=== PATIENT | male | born 1955 | race Caucasian/White ===

== ENCOUNTER → 2021-08-31 12:50 | Outpatient (CLI) | payer MEDICARE, OTHER, SELFPAY ==
[2021-08-31 14:15] LABS: Add Manual Diff / Slide Review NO; Basophils Absolute Auto 100 /uL (0-100); Basophils Percent Auto 0.6 % (0-2); Eosinophils Absolute Auto 200 /uL (0-450); Hematocrit 43.2 % (41-53); Hemoglobin 14.2 g/dL (13.5-17.5); Lymphocytes Absolute Auto 900 /uL (1100-4500); Lymphocytes Percent Auto 9.8 % (25-40); Mean Corpuscular HGB Conc 32.9 % (30-36); Mean Corpuscular Hemoglobin 30.5 PG (26-34); Mean Corpuscular Volume 92.9 fL (80-100); Monocytes Absolute Auto 800 /uL (0-900); Monocytes Percent Auto 8.7 % (3-14); Neutrophils Absolute Auto 7600 /uL (1500-7000); Neutrophils Percent Auto 78.9 % (50-75); Platelet Count 301 X10^3/uL (150-400); Red Blood Cell Count 4.65 X10^6/uL (4.5-5.9); Red Cell Distribution Width 13.9 % (11.6-14.8); White Blood Cell Count 9.6 X10^3/uL (4.5-11.0)
[2021-08-31 14:35] LABS: Hemoglobin A1C% w Est Avg Glu 6.7 % (4.0-6.0)
[2021-08-31 16:21] LABS: BUN Creatinine Ratio 19.4 (6-22); Blood Urea Nitrogen 14 mg/dL (9-20); Calcium 9.8 mg/dL (8.4-10.2); Carbon Dioxide 28 mmol/L (22-32); Chloride 103 mmol/L (98-107); Estimated Glomerular Filt Rate > 60.0 mL/min (>60); Glucose 139 mg/dL (80-110); HEMOLYSIS < 15 (0-50); Potassium 4.9 mmol/L (3.4-5.1); Sodium 140 mmol/L (137-145)
== END ==
PROVIDERS: PCP Nurse Practitioner Acute Care; Referring Provider Orthopaedic Surgery Orthopaedic Surgery of the Spine; Visit Provider Orthopaedic Surgery Orthopaedic Surgery of the Spine
DX: Z01.818 Encounter for other preprocedural examination (principal); R73.9 Hyperglycemia, unspecified; Z01.812 Encounter for preprocedural laboratory examination
CPT/HCPCS: 36415; 80048; 83036; 85025; 93005

== ENCOUNTER → 2021-10-09 11:24 | Outpatient (CLI) | payer MEDICARE, OTHER, SELFPAY ==
[2021-10-09 14:00] LABS: COVID19 -Nasal RAPID Negative (Negative)
== END ==
PROVIDERS: PCP Nurse Practitioner Acute Care; Visit Provider Physician Assistant
DX: Z20.822 Contact with and (suspected) exposure to COVID-19 (principal)
CPT/HCPCS: 87635; C9803

== ENCOUNTER 2021-10-12 09:16 | Day surgery (SDC) | payer MEDICARE, OTHER, SELFPAY ==
[2021-09-29 13:57] VITALS: BMI 43.5
[2021-10-12] VITALS (17 sets, daily range): BP systolic 126–182; BP diastolic 71–99; PULSE 66–109; RESP 16–18; TEMP 36.3–37.1; O2SAT 90–97; BMI 43.0
--- NOTE | 2021-10-12 10:39 | PM.PREOP ---
Pre-operative Note COVID-19 COVID-19 status: Negative Result date/Date tested (Pos, Neg/Pending): 10/10/21 Interval Note History & Physical reviewed/Exam performed by Physician: Yes Changes to H&P: No
[2021-10-12] MEDS: LACTATED RINGERS 1,000 ML 42 ML IV ×2 (10:40→12:53)
[2021-10-12] MEDS: CEFAZOLIN 3 GM IN 0.9 % NACL 100 ML IV (11:08)
--- NOTE | 2021-10-12 11:53 | SUR.OPER ---
Prone on spine table, head in foam head support, padded chest and pelvic supports, gel pad at knees, lower legs supported by pillows; nipples, genitalia and toes free of pressure, arms secured on foam padded arm boards at <90 degrees abduction. Tape over blanket at thigh secured to table.
[2021-10-12] MEDS: BUPIVACAINE 0.25% (PF) 30 ML, EPINEPHrine 0.3 MG INJ (11:58)
[2021-10-12] MEDS: BUPIVACAINE LIPOSOME 266 MG/20 ML VIAL INJ (11:59)
--- NOTE | 2021-10-12 13:28 | DI.RAD.S_ITS ---
PROCEDURE: XR LUMBAR SPINE 2-3V INDICATIONS: L4-L5 TLIF TECHNIQUE: 2 intraoperative views of the lumbar spine were acquired. COMPARISON: [facility] Outside Film, CR, XR LUMBAR SPINE 2 OR 3 VIEWS, 05/27/2021, 11:19. FINDINGS: Pedicle screw fixation at L4-L5 with intervertebral body spacer. IMPRESSION: Intraoperative guidance provided. Dictated by: Morris Silverman M.D. on 10/12/2021 at 14:21 Approved by: Morris Silverman M.D. on 10/12/2021 at 14:21
--- NOTE | 2021-10-12 13:38 | PM.OP.1 ---
Operative Date/Time/Diagnoses Date of procedure: 10/12/21 Time of procedure: 11:30 Pre-op diagnosis: 1. L4-5 spondylolisthesis 2. L4-5 spinal stenosis with neurogenic claudication 3. Morbid obesity Post-op diagnosis: same Procedure & Clinicians Procedure: 1. L4-5 Postero-lateral and posterior interbody fusion 2. L4-5 interbody cage placement. 3. L4-5 decompressive laminectomy with bilateral facetecomies 4. L4-5 Posterior non-segmental instrumentation 5. [place] of bone marrow from iliac crest 6. Utilization of microsurgical technique and operating microscope Same procedure as scheduled: Yes Indications: Patient has been having chronic back pain and worsening lumbar radiculopathy. Patient failed multiple conservative management with worsening pain weakness and numbness in her lower extremity. Patient has been having difficulty performing activity of daily living. After discussing risks benefits of treatment options, patient elected proceed with surgery. Surgeon: Mariano Larios Indian Blanket Weaver: Micah Seymour Click Yes if Unassisted: No Anesthesia Type: General Operative Notes Closure Type: primary Specimen(s): none sent Prosthetic devices, grafts, tissues, transplants, or devices: Globus revolve screws, Rise cage Estimated Blood Loss (mL): 50 Blood products transfused: none Procedure in detail: Patient was seen in the preoperative area. Risks and benefits of the surgery was discussed with the patient. Informed consent was obtained from the patient and placed in the chart. Surgical site was marked. Patient was taken to the operative room. General anesthesia was administered. Prophylactic antibiotic was given to the patient less than 30 min before the incision was made. Patient was placed into a prone position on the Nicola table. Patient's back was then prepped and draped in the sterile fashion. Time-out was performed at this time. Using AP and lateral C-arm imaging the interval between L4-5 was identified and marked on patient's back. A 2 inch incision 2 in from midline was made on the left side first. The fascia was incised in line with skin incision. Globus MARS retractors was placed inside the incision and docked onto the L4 lamina. Using microsurgical technique and operating microscope, a L4 laminectomy and L4-5 facetectomy was performed using a Kerrison rongeur. The disc space at L4-5 was identified. And a total diskectomy was performed at L4-5 level. The endplates were decorticated using a rasp and shaver. The total diskectomy and decortication was performed at L4-5 level in order to to accomplish a L4-5 fusion. The local bone from the laminectomy and facetectomy was saved for local bone grafting. After the total diskectomy and decortication was completed, Trifecta bone graft material was combined with local bone that was harvested earlier. At this time, a separate skin is incision was made over the iliac crest. A Jamshidi needle was inserted into the iliac crest through a separate skin incision. 5 cc of bone marrow aspiration was obtained through the separate skin incision using a Jamshidi needle from the iliac crest. The bone marrow aspiration was combined with local bone and the Trifecta bone grafting material. The bone grafting material was placed into the L4-5 interbody space along with a expandable cage. The cage was expanded to its maximum height using the torque limiting screwdriver. At this time a mirror image incision was made on the right side. The fascia was incised in line with the skin incision. Globus MARS retractor was inserted and docked onto the L4-5 posterolateral gutter. Using the power drill, posterior-lateral decortication was performed at L4-5 level until bleeding cortical bone was identified. The remaining bone grafting material was placed into the L4-5 posterior lateral gutter he order to accomplish posterolateral fusion at the L4-5 level. Using the double C-arm technique, pedicle screws were placed into the L4-5 pedicles bilaterally. This was done by placing the Jamshidi needle into the pedicles, then placing the guidewires over the Jamshidi needle, and finally placing the cannulated screws over the guidewires bilaterally. After the pedicle screws were placed, 2 titanium rods was locked into the heads of the pedicle screws using locking caps and torque limiting screwdriver. After all the hardware was placed, and confirmed with AP and lateral C-arm imaging, the wound was then irrigated with sterile normal saline and packed with Ray-Chantale gauze for 3 min to accomplish hemostasis. After the gauze was removed the deep fascia was closed with #1 Vicryl suture. The subcutaneous layer was closed with 2-0 Vicryl. The skin was closed with skin charisse. Patient tolerated the procedure well. There were no complications. Complications: none Post-operative Condition: stable Disposition: PACU Plan for aftercare: Admit to inpatient hospital
--- NOTE | 2021-10-12 14:28 | SUR.PHASEI ---
injury to frenulum underneath tongue noted by anesthesia. no active bleeding.
--- NOTE | 2021-10-12 14:35 | SUR.PHASEI ---
report to SISI Perry
[2021-10-12] MEDS: SODIUM CHLORIDE 0.9% 1,000 ML 100 ML IV (16:39)
[2021-10-12] MEDS: OXYCODONE IR 10 MG TABLET PO ×2 (18:10→23:42)
[2021-10-12] MEDS: CEFAZOLIN 1 GM VIAL 2 GM IV (18:11)
--- NOTE | 2021-10-12 19:46 | PC.NURSE ---
PPP to bilateral dorsal feet; c/m/s to BL feet positive, sensation improved from pre-surgery; ls clear; IS 2500; mild to moderate pain, PO oxycodone
[2021-10-12] MEDS: IPRATROPIUM 0.5 MG/2.5 ML NEB INH (19:59)
[2021-10-12] MEDS: TERAZOSIN 1 MG CAPSULE 2 MG PO (21:21)
[2021-10-12] MEDS: TAMSULOSIN 0.4 MG CAPSULE 0.8 MG PO (21:21)
[2021-10-12] MEDS: PANTOPRAZOLE DR 20 MG TABLET PO (21:21)
[2021-10-12] MEDS: DOCUSATE 100 MG CAPSULE PO (21:21)
[2021-10-12] MEDS: LORATADINE 10 MG TABLET PO (21:21)
[2021-10-12] MEDS: atenoloL 50 MG TABLET PO (22:40)
[2021-10-12] MEDS: SENNOSIDES 8.6 MG TABLET 17.2 MG PO (22:40)
[2021-10-12] MEDS: ACETAMINOPHEN 325 MG TABLET 650 MG PO (23:41)
[2021-10-13] MEDS: CEFAZOLIN 1 GM VIAL 2 GM IV (02:37)
[2021-10-13 02:47] VITALS: BP 123/79; PULSE 89; RESP 17; TEMP 36.8; O2SAT 90
[2021-10-13] MEDS: SODIUM CHLORIDE 0.9% 1,000 ML 100 ML IV (03:56)
[2021-10-13] MEDS: OXYCODONE IR 10 MG TABLET PO ×3 (03:56→14:35)
[2021-10-13 07:00] VITALS: PULSE 79; RESP 16; O2SAT 91
[2021-10-13] MEDS: IPRATROPIUM 0.5 MG/2.5 ML NEB INH ×2 (07:00→11:19)
--- NOTE | 2021-10-13 07:44 | PM.DS.1 ---
History of Present Illness History of Present Illness Date Patient Seen: 10/13/21 Time Patient Seen: 07:45 Chief complaint: Low back pain s/p TLIF Narrative: The patient is complaining of mild low back pain this morning. He notes his numbness in bilateral lower extremities is resolving and he is very happy about that. No nausea or vomiting. Denies fevers, chills, night sweats. Overall he is feeling well and would like to be discharged home today if cleared by Physical therapy Discharge Providers Provider Discharge Date: 10/13/21 Primary care physician: LEVI Sun Consults: 10/12/21 15:32 Consult to Occupational Therapy Evaluate & Treat Comment: Physician Instructions: Evaluate and treat Consult to Physical Therapy Evaluate & Treat Comment: Physician Instructions: Evaluate and Treat Discharge provider: Brittni Ash PA-C Summary Hospital Course Discharge Diagnosis: 1. L4-5 spondylolisthesis 2. L4-5 spinal stenosis with neurogenic claudication 3. Morbid obesity Hospital Course: Date of procedure: 10/12/21 Time of procedure: 11:30 Procedure & Clinicians Procedure: 1. L4-5 Postero-lateral and posterior interbody fusion 2. L4-5 interbody cage placement. 3. L4-5 decompressive laminectomy with bilateral facetecomies 4. L4-5 Posterior non-segmental instrumentation 5. [place] of bone marrow from iliac crest 6. Utilization of microsurgical technique and operating microscope Same procedure as scheduled: Yes Indications: Patient has been having chronic back pain and worsening lumbar radiculopathy. Patient failed multiple conservative management with worsening pain weakness and numbness in her lower extremity.? Patient has been having difficulty performing activity of daily living.? After discussing risks benefits of treatment options, patient elected proceed with surgery. Surgeon: Mariano Larios Information Systems Auditor: Micah Seymour Click Yes if Unassisted: No Anesthesia Type: General Operative Notes Closure Type: primary Specimen(s): none sent Prosthetic devices, grafts, tissues, transplants, or devices: Globus revolve screws, Rise cage Estimated Blood Loss (mL): 50 Blood products transfused: none Status at Discharge Cognitive/behavioral status at discharge: oriented Functional status at discharge: uses cane/walker Overall status at discharge: patient is progressing back to baseline Exam Vital Signs (past 8 hours): - 10/13/21 02:47 Temperature 98.2 F Pulse Rate 89 Respiratory Rate 17 Blood Pressure 123/79 Pulse Oximetry 90 L Oxygen Delivery Method Nasal Cannula Oxygen Flow Rate 3 Narrative Exam Narrative: Very pleasant 66-year-old male, resting comfortably in bed, no acute distress. On dressing demonstrates some bloody drainage on the left lateral incision. There is ecchymosis noted on his low back but no erythema or induration. Bilateral lower extremity motor functions grossly intact. Sensation is grossly intact to light touch in bilateral lower extremities. Calves are soft, nontender to palpation. [facility] Medical History Easy bruisability GERD (gastroesophageal reflux disease) High triglycerides HTN (hypertension) GERALD on CPAP Osteoarthritis Pre-diabetes Prostate cancer (2019) Spinal stenosis Spondylolisthesis Surgical History History of surgery Hx of bilateral cataract extraction (2000) Hx of rhinoplasty (1993) Hx of vitrectomy (1999) Hx of vitrectomy (2015) S/P scrotal varicocelectomy S/P UVPP (uvulopalatopharyngoplasty) (07/2000) Social History household members: children Smoking Status: Former smoker alcohol intake: former Discharge Assessment & Plan Assessment and Plan Assessment: Stable status post TLIF Plan of Treatment: -mobilize with PT x2 sessions today. Weightbearing as tolerated with front wheel walker -will limit bending, lifting, twisting -continue with current pain regimen -DC home today if cleared by 2 sessions of physical therapy and pain is well managed Discharge Plan Discharge Plan Patient Disposition: Home Discharge orders & Medications Discharge Orders: Discharge (Order); Ordered 10/13/21 Ordered By: Brittni Ash Prescriptions: New acetaminophen 500 mg capsule 500 mg PO Q4H MDD Max 3000 mg per day PRN (Reason: Pain, Mild (1-3)) Qty: 90 0RF docusate sodium 100 mg Capsule 100 mg PO BID PRN (Reason: Constipation from narcotic pain meds) Qty: 30 0RF oxycodone 10 mg Tablet See Rx Instructions .ROUTE .COMPLEX PRN (Reason: Pain, Severe (7-10)) Qty: 42 0RF Rx Instructions: 0.5-1 tablets by mouth every 4 hours as needed for moderate to severe pain Continued cyclobenzaprine 10 mg Tablet 10 mg PO BEDTIME 0RF meloxicam 15 mg Tablet 15 mg PO DAILY 0RF diltiazem HCl 240 mg Capsule,Extended Release 24 Hr 240 mg PO QAM 0RF aspirin [Aspirin Low Dose] 81 mg Tablet,Delayed Release (Dr/Ec) 81 mg PO DAILY 0RF terazosin 2 mg Capsule 2 mg PO BEDTIME 0RF tamsulosin 0.4 mg Capsule 0.8 mg PO BEDTIME 0RF atenolol 50 mg Tablet 50 mg PO BID 0RF loratadine 10 mg Tablet 10 mg PO BEDTIME 0RF duloxetine 20 mg Capsule,Delayed Release(Dr/Ec) 20 mg PO BEDTIME PRN (Reason: Pain) 0RF tiotropium bromide 2.5 mcg/actuation Mist 1 puff INHALATION BID 0RF diphenhydramine-acetaminophen [Acetaminophen PM] 25-500 mg Tablet 2 tab PO BEDTIME PRN (Reason: Sleep) 0RF omeprazole 20 mg Capsule,Delayed Release(Dr/Ec) 20 mg PO BEDTIME 0RF Follow up/Referrals: Mariano Larios MD [Physician] - (10-14 days for postoperative visit) Janice Jefferson ARNP [Primary Care Provider] - Diet/Activity/Treatments Diet: Diet as Tolerated and Regular Other treatments: Medications: -OTC Tylenol 500 mg 1 tablet every 4 hours as needed for pain/fever. Max 6 tablets per day. -Oxycodone 10 mg take 0.5-1 tablet every 4 hours as needed for moderate-severe pain (narcotic pain medication). -As needed medications: -Ducolax and /or MiraLax as needed for constipation from narcotic pain medications. -Pepcid AC as needed for stomach upset. Dressing/Wound care: -Keep dressing in place until postoperative follow-up office visit. -Okay to shower. Keep wound out of direct water stream. Can use PressNSeal plastic wrap to protect from shower stream. No soaking or submerging until all the scabs fall off (approximately 6 weeks). -Please call the office if dressing becomes wet, soiled, or saturated. Activities: -Limit bending, lifting, twisting. -Weight-bearing as tolerated. Use front wheeled walker, and progress to cane when safe. -Continue with home exercises as directed by your physical therapist. -Ice your incision as needed for pain/inflammation/swelling. Protect your skin with a folded pillowcase. Follow-up: -Follow-up with your surgeon or PA in the office in 10-14 days after surgery. -Follow-up with your surgeon 6 weeks postoperatively. Call the office if you have chest pain, shortness of breath, significant swelling that will not resolve with elevating, fever over 101?, significantly worsening pain. [facility]: [phone] Skin/Wound/Dressing Care Report to your healthcare provider any signs of infection, such as:: chills, fever, night sweats, unusual drainage and unusual redness Visit Report/Discharge Packet Instructions: DI for Transforaminal Lumbar Interbody Fusion Stand Alone Forms: Surgery Discharge Discharge Data Primary Care Provider: Janice Jefferson Attending Provider: Mariano Larios
[2021-10-13] MEDS: dilTIAZem CD 240 MG CAP PO (09:01)
[2021-10-13] MEDS: DOCUSATE 100 MG CAPSULE PO (09:01)
[2021-10-13] MEDS: atenoloL 50 MG TABLET PO (09:01)
--- NOTE | 2021-10-13 09:23 | CM.DANOTE ---
DCP: Case received, EMR reviewed and met with patient. Gracie Mas was already in room gathering information before working with patient. Introduced self and role. Was able to obtain information regarding patient's baseline activity status prior to hospitalization, as well as his current living situation. DCP assessment completed with information currently available. Patient is a 66 year old male who admitted yesterday morning to the care of the orthopedist team. PCP: Dr. Jefferson Payer: confirmed: Medicare/[employer] for Life. Patient came to the hospital via private vehicle for a surgical procedure. Patient had L4-5 postero-lateral and posterior interbody fusion. Patient has history of spinal stenosis. Met with patient in his room. He was sitting up in bed, alert and oriented, pleasant. Patient resides in [facility]. He is a , he indicated that his had a couple of years ago, they were approximately 20 years. His 90 year old mother lives with patient who is a retired RN. He also has his daughter, Holly, to assist if needed. At his baseline he drives, and has a cane. He was in the army, and was a corpman. He also indicated that he lives in a neighborhood where there is lots of support. P: Patient has discharge orders for home today. He will be working with Gracie today prior to discharging. Barbara Saba RN/Screwdown Operator Discharge Planning/Care Management CM Discharge Assessment Start: 10/13/21 09:21 Freq: Status: Active Protocol: Document 10/13/21 09:21 (Rec: 10/13/21 09:22 [id number]) Discharge Planning Assessment Assigned Distribution Manager Barbara Saba RN/Screwdown Operator Advance Directives? Yes: With [place] Advance Directives on File No History Provided By Patient Prior Living Arrangements House Household Members children Type of transporation used prior to Drives own vehicle admit Independent with ADL's Yes Is patient alert and oriented? Yes Caregiver for Another No Barriers to Discharge No Discharge Plan Home Transportation Arrangement Family Referrals Initiated None needed Whiteboard Updated in Patient Room with Yes name and ext. # of Distribution Manager Review Status In Process Next Review Type Continued Stay Review Pre-Anesthesia Assessment Start: 09/29/21 13:57 Freq: Status: Active Protocol: Document 09/29/21 13:57 CAB (Rec: 09/29/21 14:58 [facility] [id number]) Pre-Anesthesia Assessment Preferred Name Sis Patient Information Reviewed Via Phone Assessment Assessment Completed With Patient H&P Completed Within 30 Days No: Not identified at time of assess Diagnostic Results BMP/CMP,CBC,EKG Comment Labs/EKG @ [facility] 08/31/21, COVID screen-pt needs to schedule Primary Care Provider Janice Jefferson Seen Specialist in Last 12 Months Yes Specialist Seen Orthopedist Primary Language Mauritanian Steam Hand Required No Height 6 ft Weight 321 lb Body Mass Index (BMI) 43.5 Hearing Ability Normal Visual Assist Glasses Dentition Type Full- Upper & Lower Barriers to Learning None Comment Does not wear dentures, issues with upper plate Hx Anesthesia Reactions No Hx Family Anesthesia Reaction No Hx Malignant Hyperthermia No Hx Blood Transfusions No Anesthesia Review Requested No alcohol intake former Smoking Status Former smoker Tobacco type cigarettes how long ago did patient quit smoking Quit 1980 Substance Use Type does not use Pain Present Pain Reported Musculoskeletal Symptoms Back Pain,Numbness History of Falling (Recent or History of No ) Patient is completely paralyzed or No completely immobile Prosthesis or Orthotic Device Cane Mental Status Oriented to own ability Comment Balance issue Is patient on oxygen? No Does patient have [place]/SOB No Hx Sleep Apnea Yes CPAP/BIPAP use prescribed and used routinely Will Bring CPAP/BIPAP DOS Yes Currently Taking a Beta Kathleen Yes: Atenolol Can You Climb a Flight of Stairs Without Yes SOB Hx Chest Pain No Hx SOB No Hx Syncope or Dizziness No Anti-Coagulant Therapy No Has a Yard Spotter No Cardiac Testing No Hx Pacemaker/ICD No Pacemaker Rep Required? No Cardiac Clearance Received Not Applicable Diet Type At Home Regular dysphagia No Gastrointestinal Symptoms Reflux Bladder Pattern Incontinent Urinary Catheter Present No Hx Urinary Self Catheterization No Diabetes No: Pre-diabetes by labs HgbA1C 6.7 Date 08/31/21 Hx Drug Resistant Organism No Presence of External or Internal Medical Yes: Bilat IOLs, CPAP Devices Have you had any close contact with No someone diagnosed with COVID-19? Received a COVID vaccine? Yes: Moderna + booster 09/28/21 Received all doses? Yes Marital Status Lives With spouse,family,children Prior Living Arrangements House Number of Floors (Floors) One Floor Support System Child/Children,Friend(s), Spouse Does the Patient Have Assistance After Yes: in hospital dealing Surgery with kidney failure Patient Discharge Plan Description Return Home Comment Pt advised overnight length of stay per surgeon Feels Safe in Current Environment Yes Been Physically Hurt or Threatened By a No Person in Current Environment Do you have thoughts of harming yourself None or others? Are you currently considering suicide? No Do you have a plan to hurt yourself or No Plan others? Do You Have Any Spiritual Beliefs That No May Affect Your HC Choices? Do You Have Any Cultural Practices That No May Affect Your HC Choices? Comment Yan Who Can We Speak to About Patient's Care Family, friends Identifying Code for Release of Patient Declines to issue Information Health Care Proxy/Next of Kin Holly (daughter) Health Care Proxy Emergency Contact Name Holly (daughter) Emergency Contact Advance Directives? Yes: With [place] Advance Directives on File No Power of Dialysis Registered Nurse Yes Power of Dialysis Registered Nurse Name Corie Campo Power of Dialysis Registered Nurse Phone Number currently in hospital PAC Instructions Durable medical equipment, Medications to take/avoid, Nasal antibiotic,No ETOH/ petroleum product on skin DOS, NPO,Post-op transportation, Sensory aids,Sturdy shoes/ comfortable clothes,Do not bring valuables and remove jewelry
[2021-10-13 09:24] VITALS: BP 135/65; PULSE 91; RESP 18; TEMP 36.9; O2SAT 94
--- NOTE | 2021-10-13 09:39 | PT.IIE ---
Current Diagnoses Spondylolisthesis, lumbar region (10/12/21) Spinal stenosis, lumbar region with neurogenic claudication (10/12/21) Surgery Performed Operation Date: 10/12/21 10:45 Actual Procedures p L4-5 TLIF - Mariano Larios MD Medical History (Last Reviewed 10/13/21 @ 07:46 by Brittni Ash PA-C) Easy bruisability GERD (gastroesophageal reflux disease) High triglycerides HTN (hypertension) GERALD on CPAP Osteoarthritis Pre-diabetes Prostate cancer (2019) Spinal stenosis Spondylolisthesis Physical Therapy Inpatient Evaluation/Re-Eval M1 PT/OT-IP Prior Functional Status Start: 10/13/21 08:30 Freq: NEEDED Status: Active Protocol: Document 10/13/21 09:39 AW (Rec: 10/13/21 11:18 AW [id number]) Medical Review Prior Functional Status Medical History Reviewed Yes Communication WNL. Pt is an effective verbal communicator. Mobility and Gait Pt has been using a SPC when out of the house for the past 8 months or so due to a sense of poor motor control and reduced sensation in bilateral feet. He denies falls. Activities of Daily Living and IADL's Independent with all ADL's. He drives. He manages his own medications and finances. Social History Household Members children Living Arrangements House Number of Floors (Floors) One Floor Number of Stairs To Enter/Railing? Ramped entry. Home Environment High Toilet,Walk in Shower Home Equipment Front Wheel Walker,Straight Cane,Bedside Commode,Shower Seat with Backrest,Online Content Developer, Lift Recliner,Grab Bars Near Toilet Employment Status Retired Additional Social History Comment Pt has an adjustable bed at home. He is retired [employer]. His earlier this month. He lives with his 90 yo mother and with his adult daughter, Angelica. He has a friend who will stay with him to help with mobility for ~2 weeks when he discharges. M2 PT-IP Current Condition Start: 10/13/21 08:30 Freq: NEEDED Status: Active Protocol: Document 10/13/21 09:39 AW (Rec: 10/13/21 11:18 AW [id number]) Physical Therapy Current Condition Current Condition Evaluation Date 10/13/21 Treatment Diagnosis s/p L4-5 TLIF; impaired mobility and gait Onset Date 10/12/21 M3 PT-IP Subjective Start: 10/13/21 08:30 Freq: NEEDED Status: Active Protocol: Document 10/13/21 09:39 AW (Rec: 10/13/21 11:18 AW [id number]) Subjective Physical Therapy Visit Type Type Initial Evaluation Visit Start Time 08:57 Visit Stop Time 09:39 Total Visit Minutes 42 Number of INSPECTOR TOOL Visits 0 Physical Therapy Visit Comments Patient Comments Pt is willing to participate with PT Patient Goals Pt hopes to return home with support from family and friends`` Therapy Pain Assessment Pain When Pain Assessed During Weight Bearing Pain Present Pain Present Pain Reported Location back Intensity 3 Scale Used Numeric (0 - 10) Pain Management Techniques Re-positioning,Timing of Activity with Medications M4 PT-IP Mobility and Gait Start: 10/13/21 08:30 Freq: NEEDED Status: Active Protocol: Document 10/13/21 09:39 AW (Rec: 10/13/21 11:18 AW [id number]) PT-Bed Mobility Assessment Rolling Type of Rolling Log Rolling,Roll to Right Level of Assist Standby Assistance Supine to Sit Supine to Sit Contact Guard Assistance Scooting Scooting to Edge of Bed Standby Assistance PT-Transfer Assessment Sit to and From Stand Sit to and from Stand Contact Guard Assistance,Use of Upper Extremities Equipment Transfer Assistive Device Gait Belt,Front Wheeled Walker Orthotic/Prosthetic Devices or Brace: No Transfers Transfer Destination Chair,Toilet Transfer Technique amb with FWW Transfer Ability Level of Assist Standby Assistance Comments Mobility Comments Pt was lying in bed as PT arrived. BP 119/78 HR 81 SpO2 94% on 1L/min O2 via NC. PT instructed pt in post op precautions including log roll bed mobility. He completed log roll to his right side SBA and needed CGA and cues for SL to sit. He was able to scoot forward on the bed and stood with FWW CGA. Pain in standing was 3/10. He ambulated to the toilet with FWW SBA and transferred CGA. He used the grab bar on the right side for transfer. He then stood from the toilet using grab bar SBA and agreed to ambulate in the halls. He walked a total of 120 feet with FWW SBA. On return to the room, he transferred to the tall chair SBA. He was able to complete sit to stand from the chair SBA. Pt was positioned in the chair with call light and tray table in reach. Gait Assessment Gait Gait Assistance Required: Standby Assistance Distance (Feet) 120 Able to Maintain Weight Bearing Status Yes During Gait Assistive Devices Assistive Device Gait Belt,Front Wheeled Walker Orthotic/Prosthetic Devices or Brace: No Gait Deviations General Gait Pattern Antalgic,Decreased Stride Length,Decreased Feet Clearance,Wide Based Gait Factors Limiting Gait Function Factors Limiting Gait Function Decreased Strength,Pain Comments Gait Comments Pt was able to maintain precautions while ambulating with FWW. Gait was notable for WBOS and left hip external rotation, left foot pronation. Stair Climbing Assessment Comments Stair Climbing Comments Not assessed. Ramped entry at home. PT-Balance Assessment Sitting Balance and Reactions Static Sitting Balance Ability Good Dynamic Sitting Balance Ability Good Standing Balance and Reactions Static Standing Balance Ability Good Dynamic Standing Balance Ability Good Device Used FWW M5 PT-IP Objective Assessments Start: 10/13/21 08:30 Freq: NEEDED Status: Active Protocol: Document 10/13/21 09:39 AW (Rec: 10/13/21 11:18 AW [id number]) Orientation Orientation/Cognition Level of Alertness Alert Orientation Name,Day of Week,Place, Situation Language Function Ability No Deficits Noted Safety Awareness Understands Safety Issues Memory Description No Deficits Noted Gross Range of Motion Lower Extremity ROM Assessment Within Functional Limits Strength Lower Extremity Strength Assessment Bilaterally Impaired Hip 4/5 Knee 4+/5 Ankle 4+/5 Sensation Assessment Sensation Gross Sensation Right LE Impaired,Left LE Impaired Comments Sensation Comments Pt notes B feet tingling but states sensation greatly improved since surgery. M6 PT-IP Treatment Start: 10/13/21 08:30 Freq: NEEDED Status: Active Protocol: Document 10/13/21 09:39 AW (Rec: 10/13/21 11:18 AW [id number]) Physical Therapy Treatment Education Education Provided Precautions,Post-Op Packet, Safety Other Treatments Other Treatment Performed Educated pt on PT plan of care , post op precautions, safe use of FWW. M7 PT-IP Assessment and Plan Start: 10/13/21 08:30 Freq: NEEDED Status: Active Protocol: Document 10/13/21 09:39 AW (Rec: 10/13/21 11:18 AW [id number]) PT Summary Assessment and Plan Potential Rehabilitation Potential Good Status of Condition at Evaluation Evolving Summary Impairments Pain,ROM,Strength,Balance,Bed Mobility,Transfers,Gait Assessment Summary Weston is a 66 yo man seen for PT evaluation on POD0 following L4-5 TLIF. He is modified indpendent for mobility at baseline with use of SPC for ambulation outside the house. He required SBA to CGA for all mobility with FWW on assessment. His daughter and friend will be able to provide assist at home. He has all necessary equipment. Pt will be safe to discharge home with assist once medically stable. Goals Bed Mobility Goal Independent Transfer Goal Independent,Front Wheeled Walker Gait Goal Independent,Front Wheel Walker Gait Distance 200 Days to Meet Goals 2 Frequency of Treatment Frequency Of Treatment Twice a Day Treatment Plan Physical Therapy Treatment Plan Bed Mobility Training,Transfer Training,Gait Training, Therapeutic Exercise,Balance Retraining,Post Op Education, Discharge Planning,Hot or Cold Pack Other Recommendations and Next Treatment progress ambulation with FWW; Focus review precautions Precautions Lumbar Precautions Log Roll,No Twisting,Limit Bending,Lifting Restriction of 10 lbs,Gait Belt above Incisional Area Recommendations To Nursing Amount of Assist Needed Standby Assistance,1 Person Assist Discharge Recommendations PT Discharge Recommendations Home with Assistance Transportation Needs at Discharge Private Vehicle
[2021-10-13] MEDS: INFLUENZA HD VACCINE 0.7 ML SYRINGE IM (10:30)
[2021-10-13 11:20] VITALS: PULSE 81; RESP 16; O2SAT 94
--- NOTE | 2021-10-13 11:37 | OT.IP.EVAL ---
Current Diagnoses Spondylolisthesis, lumbar region (10/12/21) Spinal stenosis, lumbar region with neurogenic claudication (10/12/21) Surgery Performed Operation Date: 10/12/21 10:45 Actual Procedures p L4-5 TLIF - Mariano Larios MD Past Medical History (Last Reviewed 10/13/21 @ 07:46 by Brittni Ash PA-C) Easy bruisability GERD (gastroesophageal reflux disease) High triglycerides History of surgery HTN (hypertension) Hx of bilateral cataract extraction (2000) Hx of rhinoplasty (1993) Hx of vitrectomy (1999) Hx of vitrectomy (2015) GERALD on CPAP Osteoarthritis Pre-diabetes Prostate cancer (2019) S/P scrotal varicocelectomy S/P UVPP (uvulopalatopharyngoplasty) (07/2000) Spinal stenosis Spondylolisthesis Surgical History (Last Reviewed 10/13/21 @ 07:46 by Brittni Ash PA-C) History of surgery Hx of bilateral cataract extraction (2000) Hx of rhinoplasty (1993) Hx of vitrectomy (1999) Hx of vitrectomy (2015) S/P scrotal varicocelectomy S/P UVPP (uvulopalatopharyngoplasty) (07/2000) Occupational Therapy Inpatient Evaluation/Re-Eval M1 PT/OT-IP Prior Functional Status Start: 10/13/21 08:30 Freq: NEEDED Status: Active Protocol: Document 10/13/21 10:15 [facility] (Rec: 10/13/21 11:37 [facility] [id number]) Medical Review Prior Functional Status Medical History Reviewed Yes Communication WNL. Pt is an effective verbal communicator. Mobility and Gait Pt has been using a SPC when out of the house for the past 8 months or so due to a sense of poor motor control and reduced sensation in bilateral feet. He denies falls. Activities of Daily Living and IADL's Independent with all ADL's. He drives. He manages his own medications and finances. Social History Household Members children Living Arrangements House Number of Floors (Floors) One Floor Number of Stairs To Enter/Railing? Ramped entry. Home Environment High Toilet,Walk in Shower Home Equipment Front Wheel Walker,Straight Cane,Bedside Commode,Shower Seat with Backrest,Appliance Tester, Lift Recliner,Grab Bars Near Toilet Employment Status Retired Additional Social History Comment Pt has an adjustable bed at home. He is retired [employer]. His earlier this month. He lives with his 90 yo mother and with his adult daughter, Angelica. He has a friend who will stay with him to help with mobility for ~2 weeks when he discharges. M2 OT-IP Current Condition Start: 10/13/21 11:22 Freq: Status: Active Protocol: Document 10/13/21 10:15 [facility] (Rec: 10/13/21 11:37 [facility] [id number]) Occupational Therapy Current Condition Current Condition Evaluation Date 10/13/21 Treatment Diagnosis S/p L4-5 TLIF Diagnosis Onset Date 10/12/21 Post Operative Precautions Lumbar Precautions Log Roll,No Twisting,Limit Bending,Lifting Restriction of 10 lbs,Gait Belt above Incisional Area M3 OT- IP Subjective and Pain Start: 10/13/21 11:22 Freq: Status: Active Protocol: Document 10/13/21 10:15 [facility] (Rec: 10/13/21 11:37 [facility] [id number]) OT- Subjective Occupational Therapy Visit Type Type Initial Evaluation Visit Start Time 10:15 Visit Stop Time 10:54 Total Visit Minutes 39 Occupational Therapy Visit Comments Patient Comments Pt sitting up in the recliner and agreed to do OT eval. Patient/Caregiver Goals To go home. OT Pain Assessment Pain When Pain Assessed At Rest Pain Present Pain Present Pain Reported Location back Intensity 3 Scale Used Numeric (0 - 10) M4 OT- IP ADL's Start: 10/13/21 11:22 Freq: Status: Active Protocol: Document 10/13/21 10:15 [facility] (Rec: 10/13/21 11:37 [facility] [id number]) OT [facility] General Evaluation Self-Feeding Ability Independent OT ADL-Grooming General Evaluation Grooming Ability Standby Assistance Areas Needing Assistance Retrieving/Set-up of Grooming Items OT ADL-Oral Care General Eval Oral Care Ability Standby Assistance Comments Oral Care Comments VC to spit into a cup or hinge at his hips to be able to lean with his back straight to best follow his back precautions. OT ADL-Dressing General Eval Lower Body Dressing Ability Maximum Assistance Comments OT Dressing Comments Pt needing assist for his socks , but states has all LB dressing equipment at home even a wider sock aid to be able to do his socks. Pt states to wear well fitting flip flops at home. OT ADL-Toileting Comments OT Toileting Comments Pt states has a toilet paper aid and normally gets into the shower to wash up if needed. Pt agreed to ruben pads at night. OT ADL-Bathing Comments OT Bathing Comments Pt not wanting to shower here. M5 OT- IP IADL's Start: 10/13/21 11:22 Freq: Status: Active Protocol: Document 10/13/21 10:15 [facility] (Rec: 10/13/21 11:37 [facility] [id number]) OT-Instrumental Activities of Daily Living Home Safety Awareness Awareness of Need for Assistance at Home Good Awareness Home Safety Comments Pt's daughter to be there to assist pt for all needs as pt is a little forgetful for back precaution needs. M6 OT- IP Functional Cognition Start: 10/13/21 11:22 Freq: Status: Active Protocol: Document 10/13/21 10:15 [facility] (Rec: 10/13/21 11:37 [facility] [id number]) Cognitive Factors Limiting Selfcare Function Cognitive Ability Level of Alertness Alert Patient Orientation Name,Age,Birthday,Month,Date, Year,Day of Week,Place, Situation Attention Span Ability Capable of Focused Attention, Capable of Sustained Attention Ability to Follow Commands Able to Follow One Step Commands Memory Description Short Term Impaired Safety Awareness Decreased Ability to Apply Precautions Cognitive Comments Cognitive Assessment Comments Pt is a little forgetful and needing cues for reminders of back precautions. OT- Vision and Hearing OT- Hearing Assessment OT- Hearing Assessment WFL OT- Vision Assessment Visual Acuity Glasses For Reading M7 OT- IP Mobility and Balance Start: 10/13/21 11:22 Freq: Status: Active Protocol: Document 10/13/21 10:15 [facility] (Rec: 10/13/21 11:37 [facility] [id number]) OT-Transfer Assessment Sit to and From Stand Sit to and from Stand Standby Assistance Transfers Transfer Ability Standby Assistance Technique Transfer Destination Chair Transfer Technique Stand Step Pivot Devices Transfer Assistive Devices Gait Belt,Front Wheeled Walker Comments Mobility Comments SBA to come to stand and also for transfers with FWW at this time. VC to keep the FWW in front of him. OT- Balance Assessment Sitting Balance and Reactions Static Sitting Balance Ability Good Dynamic Sitting Balance Ability Good Standing Balance and Reactions Static Standing Balance Ability Fair M8 OT- IP Objective Assessments Start: 10/13/21 11:22 Freq: Status: Active Protocol: Document 10/13/21 10:15 [facility] (Rec: 10/13/21 11:37 [facility] [id number]) OT-Muscle Tone Assessment Muscle Tone WNL Yes M9 OT- IP Assessment and Plan Start: 10/13/21 11:22 Freq: Status: Active Protocol: Document 10/13/21 10:15 [facility] (Rec: 10/13/21 11:37 [facility] [id number]) OT Summary Assessment and Plan Potential Rehabilitation Potential Good Analytic Complexity at Evaluation Low Summary OT Impairments Balance,Functional Mobility, Grooming,Dressing,Toileting, Bathing,Toilet Transfers, Shower Transfers Progress Towards Goals Progressing Toward Goals Assessment Summary Pt low complexity and main barriers are pain, and will need reminders and assist to be able to incorporate his back precautions for his needs . Pt has a supportive family to be home to assist him. Pt looking to go home today when medically stable. Goals Grooming Goal Independent Dressing Goal Independent Toileting Goal Independent Bathing Goal Independent Toilet Transfer Goal Independent Shower Transfer Goal Independent Patient/Caregiver Education Goal Demonstrate Post-Op Precautions Days to Meet Goals 7 Frequency of Treatment Frequency Of Treatment Once a Day Treatment Plan OT Treatment Plan ADL Training,Functional Cognition Training,Functional Mobility,Patient/Family Education,Discharge Planning Other Treatment Recommendations and Next Shower if still here Treatment Focus Discharge Recommendations OT Discharge Recommendations Home with 20/06 Assist Available Transportation Needs at Discharge Private Vehicle
[2021-10-13 11:56] VITALS: BP 126/72; PULSE 82; RESP 16; TEMP 37.7; O2SAT 94
--- NOTE | 2021-10-13 14:15 | PT.IPTN ---
Current Diagnoses Spondylolisthesis, lumbar region (10/12/21) Spinal stenosis, lumbar region with neurogenic claudication (10/12/21) Surgery Performed Operation Date: 10/12/21 10:45 Actual Procedures p L4-5 TLIF - Mariano Larios MD Physical Therapy Treatment Note M2 PT-IP Current Condition Start: 10/13/21 08:30 Freq: NEEDED Status: Active Protocol: Document 10/13/21 09:39 AW (Rec: 10/13/21 11:18 AW [id number]) Physical Therapy Current Condition Current Condition Evaluation Date 10/13/21 Treatment Diagnosis s/p L4-5 TLIF; impaired mobility and gait Onset Date 10/12/21 M3 PT-IP Subjective Start: 10/13/21 08:30 Freq: NEEDED Status: Active Protocol: Document 10/13/21 13:49 [place] (Rec: 10/13/21 15:03 [place] [id number]) Subjective Physical Therapy Visit Type Type Treatment Note Visit Start Time 13:49 Visit Stop Time 14:15 Total Visit Minutes 26 Number of EMERGENCY MEDICINE SPECIALIST Visits 1 Physical Therapy Visit Comments Patient Comments Pt is willing to participate with PT, daughter present in room. Patient Goals Pt hopes to return home with support from family and friends M4 PT-IP Mobility and Gait Start: 10/13/21 08:30 Freq: NEEDED Status: Active Protocol: Document 10/13/21 13:49 [place] (Rec: 10/13/21 15:03 [place] [id number]) PT-Bed Mobility Assessment Rolling Type of Rolling Log Rolling Level of Assist Standby Assistance Supine to Sit Supine to Sit Minimal Assistance,1 Person Assistance,Head of Bed Elevated,Bedrails Sit to Supine Sit to Supine Minimal Assistance,1 Person Assistance Scooting Scooting to Edge of Bed Standby Assistance PT-Transfer Assessment Sit to and From Stand Sit to and from Stand Contact Guard Assistance,Use of Upper Extremities Equipment Transfer Assistive Device Gait Belt,Front Wheeled Walker Orthotic/Prosthetic Devices or Brace: No Transfers Transfer Destination Bed,Chair Transfer Technique amb with FWW Transfer Ability Level of Assist Minimal Assistance,Use of Upper Extremities Comments Mobility Comments Pt in chair upon arrival from therapy w/ daughter in room. Pt able to recall 3/3 spinal precautions. Demonstrated gait belt application to pts daughter. Pt CGA for sit<> stand w/ FWW. He then ambulated ~5 ft to bed and performed logroll into bed, Min A ofr sit<>sidelying for LE guidance. Pt then performed logroll out of bed w/ HOB elevated Min A. Pt has adjustable bed at home to use. He then ambulated ~30ft around room w/ FWW SBA. He demonstrated god use of FWW. Pt and daughter state they feel safe to return home and have a lot of family support. Gait Assessment Gait Gait Assistance Required: Standby Assistance Distance (Feet) 40 Able to Maintain Weight Bearing Status Yes During Gait Assistive Devices Assistive Device Gait Belt,Front Wheeled Walker Gait Deviations General Gait Pattern Antalgic,Decreased Stride Length,Decreased Feet Clearance,Wide Based Gait Factors Limiting Gait Function Factors Limiting Gait Function Decreased Strength,Pain Comments Gait Comments Pt was able to maintain precautions while ambulating with FWW. Gait was notable for WBOS and left hip external rotation, left foot pronation. Stair Climbing Assessment Comments Stair Climbing Comments Not assessed. Ramped entry at home. PT-Balance Assessment Sitting Balance and Reactions Static Sitting Balance Ability Good Dynamic Sitting Balance Ability Good Standing Balance and Reactions Static Standing Balance Ability Good Dynamic Standing Balance Ability Good Device Used FWW M5 PT-IP Objective Assessments Start: 10/13/21 08:30 Freq: NEEDED Status: Active Protocol: Document 10/13/21 09:39 AW (Rec: 10/13/21 11:18 AW [id number]) Orientation Orientation/Cognition Level of Alertness Alert Orientation Name,Day of Week,Place, Situation Language Function Ability No Deficits Noted Safety Awareness Understands Safety Issues Memory Description No Deficits Noted Gross Range of Motion Lower Extremity ROM Assessment Within Functional Limits Strength Lower Extremity Strength Assessment Bilaterally Impaired Hip 4/5 Knee 4+/5 Ankle 4+/5 Sensation Assessment Sensation Gross Sensation Right LE Impaired,Left LE Impaired Comments Sensation Comments Pt notes B feet tingling but states sensation greatly improved since surgery. M6 PT-IP Treatment Start: 10/13/21 08:30 Freq: NEEDED Status: Active Protocol: Document 10/13/21 13:49 [place] (Rec: 10/13/21 15:03 [place] [id number]) Physical Therapy Treatment Education Education Provided Precautions,Post-Op Packet, Safety Other Treatments Other Treatment Performed Educated pt on PT plan of care , post op precautions, safe use of FWW. Demonstrated gaitbelt application and appropriate assist to pts daughter. M7 PT-IP Assessment and Plan Start: 10/13/21 08:30 Freq: NEEDED Status: Active Protocol: Document 10/13/21 13:49 [place] (Rec: 10/13/21 15:03 [place] [id number]) PT Summary Assessment and Plan Potential Rehabilitation Potential Good Status of Condition at Evaluation Evolving Summary Impairments Pain,ROM,Strength,Balance,Bed Mobility,Transfers,Gait Assessment Summary Pt required CGA to Min A for bed mobility, SBA to CGA for transfers and ambulation. Pt was able to recall and adhere to all spinal precautions. Able to tolerate ~40 ft ambulation w/ FWW. Demonstrated gaitbelt application and how to assit pt to pts daughter who feels comfortable providing. Discussed home safety, pt has all DME and adjustable bed. Pt may go home when medically stable. Goals Bed Mobility Goal Independent Transfer Goal Independent,Front Wheeled Walker Gait Goal Independent,Front Wheel Walker Gait Distance 200 Days to Meet Goals 2 Frequency of Treatment Frequency Of Treatment Twice a Day Treatment Plan Physical Therapy Treatment Plan Bed Mobility Training,Transfer Training,Gait Training, Therapeutic Exercise,Balance Retraining,Post Op Education, Discharge Planning,Hot or Cold Pack Other Recommendations and Next Treatment progress ambulation with FWW; Focus review precautions Precautions Lumbar Precautions Log Roll,No Twisting,Limit Bending,Lifting Restriction of 10 lbs,Gait Belt above Incisional Area Recommendations To Nursing Amount of Assist Needed Standby Assistance,1 Person Assist Discharge Recommendations PT Discharge Recommendations Home with Assistance Transportation Needs at Discharge Private Vehicle
--- NOTE | 2021-10-13 15:06 | PC.NURSE ---
Discharge note: pt home with daughter Waleska jauregui. All discharge instructions reviewed. All belongings with patient. IV discontinued. Wheeled to vehicle in wheelchair.
== END 2021-10-13 15:06 | disposition home or self-care (01) ==
LOC: OR 09:18 → AC 09:18
PROVIDERS: PCP Nurse Practitioner Acute Care; Referring Provider Orthopaedic Surgery Orthopaedic Surgery of the Spine; Visit Provider Orthopaedic Surgery Orthopaedic Surgery of the Spine
PROC: (CPT 22633; principal; 2021-10-12 10:45)
DX: M48.062 Spinal stenosis, lumbar region with neurogenic claudication (principal); M43.16 Spondylolisthesis, lumbar region; E66.01 Morbid (severe) obesity due to excess calories; Z23 Encounter for immunization; G47.33 Obstructive sleep apnea (adult) (pediatric); R73.03 Prediabetes
CPT/HCPCS: 22633; 20939; 63047; 22853; 22840; 72100; 76000; 82962; 90471; 90662; 94640; 94760; 97116; 97162; 97165; 97530; 97535; C1776; C9290; J0171; J0330; J0690; J1100; J1170; J2250; J2405; J2704; J3010